=== PATIENT | female | born 1975 | race Caucasian/White ===

== ENCOUNTER 2024-05-26 17:56 | Inpatient (IN) | payer SELFPAY ==
[2024-05-26 18:00] VITALS: BMI 21.2
[2024-05-26 18:08] VITALS: BP 107/76; PULSE 127; RESP 16; TEMP 36.3; O2SAT 96
--- NOTE | 2024-05-26 18:50 | PC.NURSE ---
Patient is a direct admit from [facility]. Patient is voluntary with affidavit. Per affidavit, patient has had increased paranoia. Patient reports living with her boyfriend on the road in his [place]. Patient endorses suicidal ideation with plan to overdose on medication. Patient has attempted suicide in August 2023 by overdose on fentanyl. When asked the cause of her suicidal thoughts, patient stated, I just feel really depressed. Rates depression 10/10 and anxiety as severe . Patient denies homicidal ideation. Patient reports intermittent auditory hallucinations that tell her to harm herself and that she is worthless. Patient reports a history of drug abuse, that she used to take 20-30 tablets of norco each day for two years. Patient's last norco use was about 1 to 2 weeks ago. Patient interested in getting started on suboxone because she said that it makes me feel better. Patient unsteady on her feet upon admit, states that she feels weak. Patient received multiple injections of ativan at the other facility.
[2024-05-26 20:00] VITALS: BP 118/88; PULSE 105; RESP 16; TEMP 36.5; O2SAT 100
[2024-05-26] MEDS: trazodone 50 mg Tablet PO (20:37)
[2024-05-26] MEDS: hyDROXYzine 25 mg Capsule 50 MG PO (20:37)
[2024-05-27] VITALS: BP 92/60; PULSE 102; RESP 15; O2SAT 98
[2024-05-27 04:00] VITALS: RESP 16
[2024-05-27 08:00] VITALS: BP 109/73; PULSE 108; RESP 18; TEMP 36.6; O2SAT 98
[2024-05-27] MEDS: ibuprofen 600 mg Tablet PO (08:16)
[2024-05-27] MEDS: nicotine 21 mg Patch 1 PATCH TRANSDERMA (08:17)
--- NOTE | 2024-05-27 08:18 | PC.NURSE ---
NEW ORDERS RECEIVED TO START PTS HOME MEDICATIONS PER DR. CARRANZA. ORDERS TO START GABAPENTIN 300 MG PO TID, ZYDIS 10 MG PO AT HS AND WELBUTRIN DR 300 MG Q DAY. ORDERS PLACED. PT EDUCATED, VERBALIZED UNDERSTANDING.
[2024-05-27] MEDS: gabapentin 300 mg Capsule PO ×3 (08:44→20:53)
[2024-05-27] MEDS: buPROPion XL (24 HR) 300 mg Tablet PO (10:58)
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
[2024-05-27 11:34] VITALS: BP 126/89; PULSE 121; RESP 16; TEMP 36.6; O2SAT 98
[2024-05-27] MEDS: ondansetron 4 MG Tablet PO (13:10)
[2024-05-27] MEDS: acetaminophen 325 mg Tablet 650 MG PO (13:10)
[2024-05-27 16:00] VITALS: BP 95/62; PULSE 109; RESP 18; TEMP 36.6; O2SAT 99
[2024-05-27 20:00] VITALS: BP 81/54; PULSE 90; RESP 16; TEMP 36.9; O2SAT 99
[2024-05-27] MEDS: OLANZapine 10 mg ODT PO (20:53)
[2024-05-27] MEDS: trazodone 50 mg Tablet PO (20:53)
[2024-05-28] VITALS: BP 74/50; PULSE 90; RESP 16; TEMP 36.7; O2SAT 97
[2024-05-28 04:00] VITALS: BP 91/60; PULSE 90; RESP 15; O2SAT 95
[2024-05-28 08:00] VITALS: BP 102/74; PULSE 126; RESP 15; TEMP 36.9; O2SAT 100
[2024-05-28] MEDS: buPROPion XL (24 HR) 300 mg Tablet PO (08:17)
[2024-05-28] MEDS: gabapentin 300 mg Capsule PO ×3 (08:17→20:15)
[2024-05-28] MEDS: nicotine 21 mg Patch 1 PATCH TRANSDERMA (08:17)
[2024-05-28 12:00] VITALS: BP 104/61; PULSE 92; RESP 18; TEMP 36.8; O2SAT 98
--- NOTE | 2024-05-28 13:25 | P.NPUPN_ITS ---
Subjective NPU Subjective: 49-year-old female with a history of met hamphetamine abuse with recent use on admission with a history of PTSD and auditory hallucinations. Patient had acknowledged having been off of her medicine for greater than 2 weeks. She continued to report auditory hallucinations and feeling depressed. She had reported that the voices continued to tell her to harm herself. She had continued to report having problems with anxiety. She had reported some difficulties falling asleep last night but stated that she had felt better since starting her medications yesterday. She continued to isolate on the milieu. Mental Status Exam MSE Comments: Casually dressed overweight white female who appeared her stated age with fleeting eye contact and poor hygiene. There was evidence of mild psychomotor retardation. Her speech was monotone in quality and decreased in rate and diminished in volume. There was no evidence of any abnormal involuntary motor movements, tics, or tremors appreciated. Her mood was described as depressed. Her affect was flat. Her thought process was linear, logical and goal-directed. Her thought content showed no evidence of active homicidal ideation. She did report no suicidal ideation either but reported hearing voices telling her to harm herself. There was some evidence of paranoia. She did appear to be responding to internal stimuli. Her attention span was poor. She was alert and oriented to person place time and situation. Her attention span appeared variable. Her recent and remote memory appeared grossly intact. Her insight is poor. Her judgment is poor. Her impulse control appeared limited. Vitals/I&O/Wt Last Vital Signs Temp 98.4 F 05/28/24 08:00 Pulse 126 H 05/28/24 08:00 Resp 15 05/28/24 08:00 BP 102/74 05/28/24 08:00 Pulse Ox 100 05/28/24 08:00 O2 Del Method Room Air 05/28/24 08:00 Weight last 48 hrs Weight 63.503 kg Weight 63.503 kg A&P Assessment and plan (1) Unspecified psychosis: (2) Methamphetamine abuse: (3) PTSD (post-traumatic stress disorder): Plan 49-year-old female transferred here from another facility with history of methamphetamine use along with evidence of worsening psychosis and depression in the absence of her medications for at least two weeks. Patient would likely benefit from continued inpatient hospitalization. #1.? Engage patient in individual milieu and group therapy. #2?? Recommend sober living treatment at the highest level of care to which the patient is willing to commit #3?? Increase Zyprexa to 15mg at night, gabapentin 300mg tid, and wellbutrin xl 300mg in am. #4?? TO-15 minute checks #5?? Will attempt to gather collateral information ? Involuntary Hold Information 96 Hour Hold: 96 Hour Involuntary Admission: No Attestations NPU Medical Necessity Statement*: Inpatient hospitalization is medically necessary and deemed to ?be ?the clinically appropriate intervention ?at this time.? We will monitor/initiate medications and make changes as indicated.? The patient?s likely length of stay 5-7 days. Coding Level of Care Code Acute Code for Chg Fwd Diagnoses Unspecified psychosis F29 Methamphetamine abuse F15.10 PTSD (post-traumatic stress disorder) F43.10
[2024-05-28 16:00] VITALS: BP 86/54; PULSE 80; RESP 17; TEMP 36.7; O2SAT 97
[2024-05-28 19:49] VITALS: BP 131/82; PULSE 87; RESP 18; TEMP 36.9; O2SAT 97
[2024-05-28] MEDS: OLANZapine 10 mg ODT PO (20:15)
[2024-05-29] VITALS: BP 86/56; PULSE 73; RESP 18; TEMP 36.9; O2SAT 96
[2024-05-29 04:00] VITALS: BP 87/58; PULSE 79; RESP 16; TEMP 36.6; O2SAT 94
[2024-05-29] MEDS: buPROPion XL (24 HR) 300 mg Tablet PO (07:54)
[2024-05-29] MEDS: gabapentin 300 mg Capsule PO ×3 (07:55→20:51)
[2024-05-29 08:00] VITALS: BP 103/69; PULSE 86; RESP 16; TEMP 36.8; O2SAT 99
[2024-05-29] MEDS: nicotine 21 mg Patch 1 PATCH TRANSDERMA (08:35)
[2024-05-29] MEDS: OLANZapine 5 mg ODT PO (09:31)
[2024-05-29 12:00] VITALS: BP 110/74; PULSE 93; RESP 16; TEMP 36.6; O2SAT 97
--- NOTE | 2024-05-29 16:14 | P.NPUPN_ITS ---
Subjective NPU Subjective: 49-year-old female with a history of met hamphetamine abuse with recent use on admission with a history of PTSD and auditory hallucinations. She continued endorse auditory hallucinations and describes them as being negative. She continued to report depressed mood. She had isolated in her room most of the day according to staff. She had reported being uncertain as to why she had been more depressed but stated that this happened infrequently. She did not report any clear relation to her use of methamphetamine to her mood but did think that it was possible that her withdrawal off of methamphetamine could induce worsening depression. She continues to report feeling distracted by the voices. Mental Status Exam MSE Comments: Casually dressed overweight white female who appeared her stated age with fleeting eye contact and poor hygiene. There was evidence of mild psychomotor retardation. Her speech was monotone in quality and decreased in rate and diminished in volume. There was some increase in speech latency. There was no evidence of any abnormal involuntary motor movements, tics, or tremors appreciated. Her mood was described as depressed. Her affect was flat. Her thought process was linear, logical and goal-directed. Her thought content showed no evidence of active homicidal ideation. She did report no suicidal ideation either but reported hearing voices telling her to harm herself. There was some evidence of paranoia. She did appear to be responding to internal stimuli. Her attention span was poor. She was alert and oriented to person place time and situation. Her attention span appeared variable. Her recent and remote memory appeared grossly intact. Her insight is poor. Her judgment is poor. Her impulse control appeared limited. Vitals/I&O/Wt Last Vital Signs Temp 97.8 F 05/29/24 12:00 Pulse 93 05/29/24 12:00 Resp 16 05/29/24 12:00 BP 110/74 05/29/24 12:00 Pulse Ox 97 05/29/24 12:00 O2 Del Method Room Air 05/29/24 04:00 A&P Assessment and plan (1) Unspecified psychosis: (2) Methamphetamine abuse: (3) PTSD (post-traumatic stress disorder): Plan 49-year-old female transferred here from another facility with history of met hamphetamine use along with evidence of worsening psychosis and depression in the absence of her medications for at least two weeks. Patient would likely benefit from continued inpatient hospitalization. #1.? Engage patient in individual milieu and group therapy. #2?? Recommend sober living treatment at the highest level of care to which the patient is willing to commit #3?? Increase Zyprexa to 20mg at night, gabapentin 300mg tid, and continue wellbutrin xl 300mg in am. #4?? TO-15 minute checks #5?? Will attempt to gather collateral information ? Involuntary Hold Information 96 Hour Hold: 96 Hour Involuntary Admission: No Attestations NPU Medical Necessity Statement*: Inpatient hospitalization is medically necessary and deemed to ?be ?the clinically appropriate intervention ?at this time.? We will monitor/initiate medications and make changes as indicated.? The patient?s likely length of stay 3-5 days. Coding Level of Care Code Acute Code for Chg Fwd Diagnoses Unspecified psychosis F29 Methamphetamine abuse F15.10 PTSD (post-traumatic stress disorder) F43.10
[2024-05-29] MEDS: acetaminophen 325 mg Tablet 650 MG PO (16:35)
[2024-05-29] MEDS: OLANZapine 10 mg ODT PO (20:51)
[2024-05-29 21:29] VITALS: BP 94/62; PULSE 89; RESP 16; TEMP 37.1; O2SAT 97
[2024-05-30 06:00] VITALS: BP 103/70; PULSE 80; RESP 16; TEMP 36.9; O2SAT 98
[2024-05-30] MEDS: gabapentin 300 mg Capsule PO ×2 (08:09→15:22)
[2024-05-30] MEDS: buPROPion XL (24 HR) 300 mg Tablet PO (08:09)
[2024-05-30] MEDS: nicotine 4 mg lozenge MUCOUS MEM ×2 (08:14→12:28)
[2024-05-30 14:00] VITALS: BP 98/68; PULSE 99; RESP 17; TEMP 36.7; O2SAT 100
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
[2024-05-30 15:09] VITALS: BP 103/70; PULSE 80; RESP 16; TEMP 36.9; O2SAT 98
== END 2024-05-30 15:38 | disposition home or self-care (01) | DRG 885 ==
PROVIDERS: Admitting Provider Psychiatry & Neurology Psychiatry; Visit Provider Psychiatry & Neurology Psychiatry
DX: F29 Unspecified psychosis not due to a substance or known physiological condition (principal); F15.10 Other stimulant abuse, uncomplicated; F43.10 Post-traumatic stress disorder, unspecified; Z91.128 Patient's intentional underdosing of medication regimen for other reason; Z81.3 Family history of other psychoactive substance abuse and dependence
CPT/HCPCS: 97165; Q0162